=== PATIENT | male | born 1960 | race African-American/Black ===

== ENCOUNTER 2020-12-20 12:53 | Emergency (ER) | payer BC, OTHER ==
[2020-12-20 13:09] VITALS: BP 145/92; PULSE 82; TEMP 98.1; BMI 30.9
[2020-12-20] MEDS ORDERED: ASPIRIN 81 MG CHEWABLE TABLETS PO ONE (13:43)
[2020-12-20] MEDS ORDERED: ASPIRIN 81 MG CHEWABLE TABLETS ONE (14:38)
[2020-12-20 14:50] LABS: BASO % 1.1 % (0-2.0); HEMATOCRIT 44.7 % (35.4-49); HEMOGLOBIN 15.2 GM/dL (11.7-16.9); LYMPH % 25.9 % (8-40); MCH 30.4 pg (25.7-33.7); MEAN CELL VOLUME 89.5 fl (80-96); MEAN PLT VOLUME 7.1 fl (7.5-11.1); MONO % 8.5 % (3.8-10.2); NEUT % 63.5 % (42.8-82.8); PLATELET COUNT 271 10^3/uL (134-434); RBC 4.99 M/mm3 (4.00-5.60); RDW 14.2 % (11.9-15.9); WHITE BLOOD COUNT 4.5 K/mm3 (4.0-10.0)
[2020-12-20] MEDS ORDERED: KETOROLAC TROMETHAMINE 15 MG/ML VIAL IVPUSH ONE (15:06)
[2020-12-20] MEDS ORDERED: LIDOCAINE 5% TOPICAL PATCH TP ONE (15:06)
[2020-12-20 15:11] LABS: CHLORIDE 103 mmol/L (98-107); SODIUM 139 mmol/L (136-145)
[2020-12-20 15:14] LABS: ALBUMIN 3.7 g/dl (3.4-5.0); ANION GAP 5 MMOL/L (8-16); CALCIUM 9.1 mg/dL (8.5-10.1); CO2 30 mmol/L (21-32); GLUCOSE,RANDOM 107 mg/dL (74-106)
[2020-12-20] MEDS ORDERED: LIDOCAINE 5% TOPICAL PATCH ONE (15:15)
[2020-12-20] MEDS ORDERED: KETOROLAC TROMETHAMINE 15 MG/ML VIAL ONE (15:15)
[2020-12-20 15:16] LABS: BLOOD UREA NITROGEN 14.9 mg/dL (7-18)
[2020-12-20 15:17] LABS: CREATININE 1.3 mg/dL (0.55-1.3); SGOT/AST 23 U/L (15-37)
[2020-12-20 15:19] LABS: BILIRUBIN,TOTAL 0.7 mg/dL (0.2-1)
[2020-12-20 15:20] LABS: TOT PROT 7.2 g/dl (6.4-8.2)
[2020-12-20 15:21] LABS: ALK PHOS 69 U/L (45-117); SGPT/ALT 20 U/L (13-61)
[2020-12-20] MEDS ORDERED: LIDOCAINE PATCH REMOVAL MC SCH (22:00)
== END 2020-12-20 18:46 | disposition home or self-care (01) ==
LOC: JER 12:53
PROC: 3E0333Z Introduction of Anti-inflammatory into Peripheral Vein, Percutaneous Approach (ICD-10-PCS; principal; 2020-12-20)
DX: R07.89 Other chest pain (principal)
CPT/HCPCS: 36415; 71046-TC-FY; 80053; 82550; 82553; 84484; 85025; 93005; 93010; 99285-25; C9803; U0003; U0005

== ENCOUNTER 2023-08-24 09:17 | Emergency (ER) | payer BC, OTHER ==
[2023-08-24 09:26] VITALS: BMI 30.9
[2023-08-24] MEDS ORDERED: ACETAMINOPHEN 500 MG TABLET (FP) ONE (11:12)
[2023-08-24] MEDS: ACETAMINOPHEN 500 MG TABLET (FP) PO ONE (11:14)
[2023-08-24 13:10] VITALS: BP 127/79; PULSE 61; RESP 20; TEMP 98.1
== END 2023-08-24 13:52 | disposition home or self-care (01) ==
LOC: JERFT 09:17
DX: S90.512A Abrasion, left ankle, initial encounter (principal); M79.645 Pain in left finger(s); R20.0 Anesthesia of skin; M79.642 Pain in left hand; W01.0XXA Fall on same level from slipping, tripping and stumbling without subsequent striking against object, initial encounter; Y93.01 Activity, walking, marching and hiking
CPT/HCPCS: 73130-TC-LT-FY; 82962; 99284-25